=== PATIENT | male | born 1985 | race Caucasian/White ===

== ENCOUNTER 2021-10-01 19:12 | Emergency (ER) | payer OTHER, SELFPAY ==
[2021-10-01 19:13] VITALS: BP 164/99; PULSE 107; RESP 17; TEMP 36.7; O2SAT 97; BMI 34.7
--- NOTE | 2021-10-01 19:18 | XRR_ITS ---
PROCEDURE INFORMATION: Exam: XR Left Hand Exam date and time: 10/01/2021 7:22 PM Age: 36 years old Clinical indication: Injury or trauma; Other: Laceration; Finger; Left; Thumb TECHNIQUE: Imaging protocol: Radiologic exam of the Left hand. Views: 3 or more views. COMPARISON: No relevant prior studies available. FINDINGS: Bones/joints: There is been traumatic resection of the distal aspect of the 1st digit with soft tissue defect and underlying comminuted fracture of the tuft of the 1st digit distal phalanx with multiple small adjacent free fracture fragments. Soft tissues: Edema and/or hematoma is present in the soft tissues adjacent to the fracture site. XR/XR hand LT min 3V* [id number] IMPRESSION: There is been traumatic resection of the distal aspect of the 1st digit with soft tissue defect and underlying comminuted fracture of the tuft of the 1st digit distal phalanx with multiple small adjacent free fracture fragments.
[2021-10-01 19:19] VITALS: BP 164/99; PULSE 106; RESP 18; O2SAT 96
[2021-10-01] MEDS: ondansetron 2 mg/ML SDV 2 mL 4 MG IVP (19:26)
[2021-10-01 19:27] VITALS: RESP 14
[2021-10-01] MEDS: morphine 4 mg/mL SDV 1 mL IVP (19:27)
[2021-10-01] MEDS: tetanus-dipt-pertussis 0.5 mL SDV IM (19:34)
--- NOTE | 2021-10-01 19:38 | W.ED.EXTPRO ---
HPI - Extremity Problem General: Chief complaint: Extremity Injury, Upper Stated complaint: L thumb injury Time Seen by Provider: 10/01/21 19:13 Source: patient and EMS Mode of arrival: EMS Limitations: no limitations History of Present Illness: 36-year-old male who states that he was using a rip saw just prior to arrival. He states that he was ripping boards in amputated the distal portion of his left thumb. Denies any other injuries states his pain is currently a 5 out of 10 he did receive fentanyl in route denies when his last tetanus was he denies any other pain. Associated symptoms: Deny chest pain, fever(s) or rash Review of Systems Const: Denies: fever(s), chills, body aches or change in appetite Eyes: Denies: blurry vision or eye discomfort ENMT: Denies: throat pain or dental pain Card: Denies: chest pain Resp: Denies: dyspnea GI: Denies: abdominal pain, nausea, vomiting or diarrhea : Denies: dysuria Musc: Reports: extremity pain Skin/Breast: Denies: rash Neuro: Denies: headache(s) Psych: Denies: depression [place]/Lymph: Denies: easy bruising All/Imm: Denies: urticaria PFSH ED PFSH: Medical History (Updated 10/01/21 @ 20:11 by Joleen Núñez MD) No pertinent past medical history Social History (Updated 10/01/21 @ 19:39 by Joleen Núñez MD) Substance/Drug Use: never Physical Exam Const: COMMON NORMALS: no acute distress, patient oriented x3 and healthy appearing HENMT: COMMON NORMALS: normocephalic and atraumatic HEAD & SCALP: normocephalic and atraumatic Eye: COMMON NORMALS: Equal, round and reactive pupils present and EOMs intact bilaterally PUPIL: Yes Equal, round and reactive pupils present Neck/C-Spine: COMMON NORMALS: full ROM and supple Chest: COMMONS NORMALS: normal inspection of the chest and normal palpation of entire chest wall Resp: COMMON NORMALS: normal respiratory effort, No retractions, No use of accessory muscles and clear to auscultation bilaterally AUSCULTATION: clear to auscultation bilaterally Cardio: COMMON NORMALS: regular rate, regular rhythm and No murmurs present (Cardio) RATE: regular rate RHYTHM: regular rhythm GI: COMMON NORMALS: Normal to inspection, nondistended, normoactive bowel sounds present, Soft to palpation, non-tender and no masses PALPATION: Yes Soft to palpation Extremity: COMMON NORMALS: full ROM NARRATIVE EXTREMITY EXAM: Distal tip of the left thumb is amputated at the junction of the distal bone right at the area of his nail with no nail involvement Neuro: COMMON NORMALS: patient oriented x3, moves all extremities and no focal motor deficits Psych: COMMON NORMALS: mental status grossly normal, Normal thought process present and cooperative THOUGHT PROCESS: Normal thought process present Skin: COMMON NORMALS: no rashes or lesions noted and no wounds GENERAL SKIN EXAM: no rashes or lesions noted Procedures Laceration Laceration 1: Site: hand Side (If applicable): left Size (cm): 2 Description: other (distal thumb amputation) Pre-repair: wound explored and irrigated extensively Skin layer closed with: nylon Size (cm): 4-0 Number of sutures: 4 Technique: simple, interrupted Nerve Block Nerve Block 1: Time out performed: Yes Local Anesthetic: bupivacaine 0.5% Amount of anesthesia used (mL): 15 Nerve Blocks: digital Procedure Successful: Yes Patient Tolerated Procedure: well Complications: none Course Vital Signs: Vital signs: Vital Signs Temperature 98.0 F 10/01/21 19:13 Pulse Rate 92 10/01/21 19:49 Respiratory Rate 16 10/01/21 19:49 Blood Pressure 105/78 10/01/21 19:49 Pulse Oximetry 95 10/01/21 19:49 MDM - Extremity (Nontraumatic) Medical Decision Making Patient presents here with a amputation to distal tip of his left thumb. I did speak to the hand surgeon at [place] Dr. Kaur and reviewed the images with her. I did do a nerve block and put 4 sutures across the wound to approximate as well as I could as she instructed. He does have a large chunk missing and was unable to approximate all the way but she is going to follow-up in her clinic did place a finger splint on as well and will put him on antibiotics and pain medicine. Lab Data Radiology Impressions Hand X-Ray 10/01/21 19:18 IMPRESSION: There is been traumatic resection of the distal aspect of the 1st digit with soft tissue defect and underlying comminuted fracture of the tuft of the 1st digit distal phalanx with multiple small adjacent free fracture fragments. Discharge Plan Discharge Patient Disposition: Home Clinical Impression: Injury of thumb, left Qualifiers: Encounter type: initial encounter Qualified Code(s): S69.92XA - Unspecified injury of left wrist, hand and finger(s), initial encounter Prescriptions: New hydrocodone-acetaminophen 5-325 mg tablet 1 tab PO Q6H PRN (Reason: pain) Qty: 14 0RF cephalexin 500 mg capsule 500 mg PO TID 7 Days Qty: 21 0RF Discharge Orders: Discharge ED (Routine); Ordered 10/01/21 Ordered By: Joleen Núñez Referrals: amy kaur [Other] Tyler Barbour MD [Primary Care Provider] - Discharge Diet: Advance as tolerated Discharge Activity: Resume usual activity Patient Instructions: Finger Amputation (ED), Opioid Safety Coding Level of Care Code ED Fitness/Wellness Director for [facility] Fwd Exam Comprehensive
[2021-10-01] MEDS: ceFAZolin 1,000 mg SDV 1000 MG IVP (19:39)
[2021-10-01 19:49] VITALS: BP 105/78; PULSE 92; RESP 16; O2SAT 95
[2021-10-01 20:49] VITALS: BP 105/78; PULSE 92; RESP 16; O2SAT 95
[2021-10-01 21:15] VITALS: BP 105/78; PULSE 92; RESP 16; O2SAT 95
== END 2021-10-01 21:17 | disposition home or self-care (01) ==
PROVIDERS: Emergency Provider Emergency Medicine; PCP Family Medicine
DX: S68.022A Partial traumatic metacarpophalangeal amputation of left thumb, initial encounter (principal); W27.0XXA Contact with workbench tool, initial encounter; Z23 Encounter for immunization
CPT/HCPCS: 12001; 73130; 90471; 90715; 96374; 96375; 99284; J0690; J2270; J2405; J3490

== ENCOUNTER 2022-08-22 08:02 | Outpatient (CLI) | payer OTHER, SELFPAY ==
--- NOTE | 2022-08-22 08:15 | XRR_ITS ---
PROCEDURE INFORMATION: Exam: XR Chest Exam date and time: 08/22/2022 8:17 AM Age: 37 years old Clinical indication: Cough with hemorrhage; Additional info: Hemapotsis TECHNIQUE: Imaging protocol: Radiologic exam of the chest. Views: 2 views. COMPARISON: No relevant prior studies available. FINDINGS: Lungs: Unremarkable. No consolidation. Pleural spaces: Unremarkable. No pleural effusion. No pneumothorax. Heart/Mediastinum: Unremarkable. No cardiomegaly. Bones/joints: Unremarkable. XR/XR chest 2V* [id number] IMPRESSION: No acute findings.
== END 2022-08-22 08:03 | disposition home or self-care (01) ==
LOC: RAD 08:07
PROVIDERS: PCP Family Medicine; Visit Provider Family Medicine
DX: J40 Bronchitis, not specified as acute or chronic (principal)
CPT/HCPCS: 71046

== ENCOUNTER → 2024-05-14 13:34 | Outpatient (BNVA) | payer OTHER, SELFPAY | PROVIDERS: PCP Family Medicine; Visit Provider Family Medicine | DX: R42 Dizziness and giddiness (principal) | CPT/HCPCS: 80053; 84443; 85025 ==

== ENCOUNTER → 2024-05-28 13:25 | Outpatient (BNVA) | payer OTHER, SELFPAY | PROVIDERS: PCP Family Medicine; Visit Provider Family Medicine | DX: Z13.6 Encounter for screening for cardiovascular disorders (principal) | CPT/HCPCS: 80061; 82947; 83036 ==

== ENCOUNTER → 2024-12-22 07:52 | Outpatient (BNVA) | payer OTHER, SELFPAY | PROVIDERS: PCP Family Medicine; Visit Provider Family Medicine | DX: J06.9 Acute upper respiratory infection, unspecified (principal) | CPT/HCPCS: 87426 ==